=== PATIENT | male | born 2000 | race Caucasian/White ===

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

== ENCOUNTER 2023-07-23 14:22 | Emergency (ER) | payer BC ==
[~2023-07-23] VITALS: Ht 182.9 cm; Wt 87.1 kg
[2023-07-23 15:54] VITALS: BP_SYST 125; PULSE 108; RESP 20; TEMP 98; O2SAT 99
[2023-07-23] MEDS ORDERED: ALBMDI INH (17:07)
[2023-07-23] MEDS ORDERED: PHEDM120 PO (17:07)
[2023-07-23 17:39] VITALS: BP_SYST 125; PULSE 85; RESP 18; TEMP 98; O2SAT 100
== END 2023-07-23 17:40 | disposition home or self-care (01) ==
LOC: SED 14:22
DX: B34.9 Viral infection, unspecified (principal); R50.9 Fever, unspecified; R05.9 Cough, unspecified; M79.10 Myalgia, unspecified site; Z79.899 Other long term (current) drug therapy
CPT/HCPCS: 99283